=== PATIENT | female | born 1965 | race Caucasian/White ===

== ENCOUNTER → 2021-03-11 | Outpatient (CLI) | payer BC, OTHER | LOC: EXRD 11:09 | DX: R10.9 Unspecified abdominal pain (principal); N39.0 Urinary tract infection, site not specified; N13.30 Unspecified hydronephrosis | CPT/HCPCS: 76775 ==

== ENCOUNTER 2021-04-24 10:06 | Emergency (ER) | payer BC, OTHER ==
[~2021-04-24] VITALS: Ht 172.7 cm; Wt 86.2 kg
== END 2021-04-24 12:57 | disposition home or self-care (01) ==
LOC: ER1 10:06
DX: Z23 Encounter for immunization (principal); U07.1 COVID-19; I12.9 Hypertensive chronic kidney disease with stage 1 through stage 4 chronic kidney disease, or unspecified chronic kidney disease; E11.22 Type 2 diabetes mellitus with diabetic chronic kidney disease; N18.9 Chronic kidney disease, unspecified
CPT/HCPCS: 99283; M0243

== ENCOUNTER → 2021-07-08 | Outpatient (CLI) | payer BC, OTHER | LOC: EXRD 06-26 11:30 | DX: E11.22 Type 2 diabetes mellitus with diabetic chronic kidney disease (principal); N18.30 Chronic kidney disease, stage 3 unspecified; N13.30 Unspecified hydronephrosis; N26.1 Atrophy of kidney (terminal) | CPT/HCPCS: 76775 ==

== ENCOUNTER → 2021-08-10 | Outpatient (CLI) | payer BC, OTHER | LOC: KOH-I 11:13 | DX: J20.9 Acute bronchitis, unspecified (principal); R05.9 Cough, unspecified | CPT/HCPCS: 71046 ==

== ENCOUNTER → 2021-12-21 | Outpatient (CLI) | payer BC, OTHER ==
[2021-12-21 14:44] LABS: HEMOGLOBIN 12.6 gm/dl (12.3-15.3); RED BLOOD COUNT 4.51 M/UL (4.00-5.10); WHITE BLOOD COUNT 7.3 K/UL (4.5-11.0)
== END ==
LOC: LAB 14:15
PROVIDERS: Nurse Practitioner Family
DX: E83.51 Hypocalcemia (principal); E11.22 Type 2 diabetes mellitus with diabetic chronic kidney disease; N18.4 Chronic kidney disease, stage 4 (severe); R06.00 Dyspnea, unspecified; D63.1 Anemia in chronic kidney disease; R53.83 Other fatigue; Z00.00 Encounter for general adult medical examination without abnormal findings; E11.49 Type 2 diabetes mellitus with other diabetic neurological complication
CPT/HCPCS: 36415; 80048; 83880; 83970; 85025

== ENCOUNTER → 2022-01-07 | Outpatient (CLI) | payer BC, OTHER | LOC: NM 08:46 | DX: R07.9 Chest pain, unspecified (principal); R06.00 Dyspnea, unspecified; R53.83 Other fatigue; E78.5 Hyperlipidemia, unspecified | CPT/HCPCS: 78452; 93017; A9502; J2785 ==

== ENCOUNTER → 2022-02-15 | Outpatient (CLI) | payer BC, OTHER | LOC: LAB 11:36 | PROVIDERS: Internal Medicine Nephrology | DX: N18.4 Chronic kidney disease, stage 4 (severe) (principal) | CPT/HCPCS: 36415; 80048; 82043; 82570 ==